=== PATIENT | male | born 1960 | race Caucasian/White ===

== ENCOUNTER 2016-03-20 07:09 | Emergency (ER) | END 2016-03-20 07:52 | disposition left against medical advice (07) | LOC: UCCORT 07:09 | DX: Z53.21 Procedure and treatment not carried out due to patient leaving prior to being seen by health care provider (principal); R09.89 Other specified symptoms and signs involving the circulatory and respiratory systems ==

== ENCOUNTER 2016-03-20 20:09 | Emergency (ER) | payer BC ==
[2016-03-20 20:23] VITALS: BP 153/92
--- NOTE | 2016-03-20 20:42 | UC ---
Respiratory Complaint HPI - HPI Summary HPI Summary: URI began on Thursday fever , cough, sore throat---seems to be getting better, Is concerned because he is flying again in two days and exposing his mother to any illness - History of Current Complaint Chief Complaint: UCRespiratory Stated Complaint: SORE THROAT Time Seen by Provider: 03/20/16 20:34 Hx Obtained From: Patient Onset/Duration: Sudden Onset, Lasting Days, Still Present Timing: Constant Severity Initially: Moderate Severity Currently: Mild Character: Cough: Nonproductive Aggravating Factors: Nothing Alleviating Factors: Nothing Associated Signs And Symptoms: Positive: Fever, Chills, Pleuritic Chest Pain, URI. Negative: Nasal Congestion - Allergies/Home Medications Allergies/Adverse Reactions: Allergies Allergy/AdvReac Type Severity Reaction Status Date / Time Sulfa Antibiotics Allergy Rash Verified 03/20/16 20:23 Home Medications: Home Medications [id number]-[id number] [Nighttime Cold Medicine] 1 liq PO ONCE PRN 03/20 [History Confirmed 03/20/16] Diphenhydramine-Phenylephrine- [Theraflu Severe Cold & Co] 1 pow PO ONCE PRN [History Confirmed 03/20/16] Multiple Vitamins W/ Minerals [Airborne] 1 tab PO ONCE PRN 03/20/16 [History Confirmed 03/20/16] Zinc W/ Vitamin C [Zinc/Vitamin C] 1 hilda [place] DAILY PRN 03/20/16 [History Confirmed 03/20/16] guaiFENesin LIQ* [Robitussin*] 20 mg PO Q4H PRN 03/20/16 [History Confirmed ] PMH/Surg Hx/FS Hx/Imm Hx Previously Healthy: Yes - Surgical History Surgical History: Yes Surgery Procedure, Year, and Place: LEFT KNEE (ACL) REPAIR. HYDROCELE SX - Family History Known Family History: Positive: None Family History: no known cardiovascular illness in family lineage - Social History Occupation: Employed Full-time Lives: With Family Alcohol Use: SEE BELOW Alcohol Amount: A 6 PK PER WK Substance Use Type: None Smoking Status (MU): Never Smoked Tobacco Review of Systems Constitutional: Fever, Chills, Fatigue Skin: Negative Eyes: Negative ENT: Sore Throat Respiratory: Cough Cardiovascular: Negative Gastrointestinal: Negative Genitourinary: Negative Motor: Negative Neurovascular: Negative Musculoskeletal: Negative Neurological: Negative Psychological: Negative All Other Systems Reviewed And Are Negative: Yes Physical Exam Triage Information Reviewed: Yes Appearance: No Pain Distress, Well-Nourished, Ill-Appearing - mild Vital Signs: Initial Vital Signs Temp 98.5 F 03/20/16 20:13 Pulse 98 03/20/16 20:13 Resp 16 03/20/16 20:13 BP 153/92 03/20/16 20:13 Pulse Ox 97 03/20/16 20:13 Vital Signs Reviewed: Yes Eye Exam: Normal Eyes: Positive: Conjunctiva Clear ENT Exam: Normal ENT: Positive: Normal ENT inspection, Hearing grossly normal, Pharynx normal, TMs normal. Negative: Nasal congestion, Nasal drainage, Tonsillar swelling, Tonsillar exudate, Trismus, Muffled/hoarse voice Dental Exam: Normal Neck exam: Normal Neck: Positive: Supple, Nontender, No Lymphadenopathy Respiratory Exam: Normal Respiratory: Positive: Chest non-tender, Lungs clear, Normal breath sounds, No respiratory distress, No accessory muscle use Cardiovascular Exam: Normal Cardiovascular: Positive: RRR, No Murmur, Pulses Normal, Brisk Capillary Refill Musculoskeletal Exam: Normal Musculoskeletal: Positive: Strength Intact, ROM Intact, No Edema Neurological Exam: Normal Neurological: Positive: Alert, Muscle Tone Normal Psychological Exam: Normal Skin Exam: Normal Skin: Positive: rashes UC Diagnostic Evaluation - Laboratory O2 Sat by Pulse Oximetry: 97 Diagnostic Studies Comment: Flu A (+) Respiratory Course/Dx - Course Course Of Treatment: rest increase fluids, otc pain relievers follow with pcp re -check prn - Differential Dx/Diagnosis Differential Diagnosis/HQI/PQRI: Asthma, Influenza, Laryngitis, Sinusitis Provider Diagnoses: Influenza A Discharge - Discharge Plan Condition: Stable Disposition: HOME Patient Education Materials: Influenza (ED) Forms: *Gen. Provider Communication Referrals: [facility] [Outside] Non Staff,Doctor [Primary Care Provider] - If Needed (or return here)
== END 2016-03-20 21:28 | disposition home or self-care (01) ==
LOC: UCCORT 20:09
DX: J09.X2 Influenza due to identified novel influenza A virus with other respiratory manifestations (principal); Z88.2 Allergy status to sulfonamides
CPT/HCPCS: 87502; 99211; G0463